=== PATIENT | male | born 1990 | race Caucasian/White ===

== ENCOUNTER 2016-10-19 22:52 | Emergency (ER) | payer OTHER, MEDICARE ==
[~2016-10-19] VITALS: Ht 185.4 cm; Wt 118.3 kg
[~2016-10-19 22:52] MED LIST: FLAGYL500 MG PO; LEVAQUIN750 MG PO; OMEPRAZOLE40 M1 PO
[2016-10-19 23:58] LABS: HEMATOCRIT 39.5 % (38.0-50.0); MCH 28.7 PG (29.0-34.0); MCHC 34.7 G/DL (30.0-36.0); MCV 82.8 FL (86-99); MEAN PLAT.VOLUME 10.6 uM^3 (9.0-12.4); PLATELET COUNT 211 K/uL (156-360); RBC DIS.WIDTH-CV 12.3 % (11.8-14.6); RBC DIS.WIDTH-SD 37.5 % (39-53); RED BLOOD COUNT 4.77 M/uL (4.00-5.50); WHITE BLOOD COUNT 12.3 K/uL (4.1-10.2)
[2016-10-20 00:08] LABS: CHLORIDE 104 mEq/L (99-109); POTASSIUM 3.8 mEq/L (3.7-5.4); SODIUM 138 mEq/L (136-147)
[2016-10-20 00:10] LABS: GLUCOSE 92 mg/dL (70-99)
[2016-10-20 00:12] LABS: ANION GAP 10 MEQ/L (2-14); TOTAL BILIRUBIN 0.5 mg/dL (0.0-1.0)
[2016-10-20 00:14] LABS: ALKALINE PHOSPHATASE 47 IU/L (3-129); GFR ESTIMATE (CALCULATED) > 59 mL/min/
[2016-10-20 00:15] LABS: UREA NITROGEN (BUN) 15 mg/dL (9-23)
[2016-10-20 01:03] LABS: ADD MIUA? NO; BILIRUBIN NEGATIVE; BLOOD NEGATIVE; COLOR YELLOW ((YELLOW)); GLUCOSE (STRIP) NEGATIVE; KETONES NEGATIVE; LEUKOCYTES NEGATIVE; NITRITE NEGATIVE; PROTEIN (STRIP) NEGATIVE; SPECIFIC GRAVITY 1.013 (1.000-1.030); UCUL ADDED? NO; UROBILINOGEN 0.2 MG/DL (0.2-1.0)
[2016-10-20] MEDS ORDERED: PERCOCET 5/31 TABLET PO (01:25)
[2016-10-20] MEDS ORDERED: ZOFRAN ODT4 MG PO (01:25)
[2016-10-20 01:32] VITALS: BP 136/84
== END 2016-10-20 02:00 | disposition home or self-care (01) ==
LOC: EXP 22:52 → EME 22:52 → EXP 10-20 02:00
PROVIDERS: Physician Assistant
DX: R10.32 Left lower quadrant pain (principal); M54.9 Dorsalgia, unspecified; R11.0 Nausea; R19.7 Diarrhea, unspecified; R39.198 Other difficulties with micturition; K92.1 Melena; Z87.891 Personal history of nicotine dependence
CPT/HCPCS: 74176; 80053; 81003; 85027; 99281; 99285; J1885; J2270; J2405; J7030

== ENCOUNTER 2016-11-20 19:34 | Inpatient (IN) | payer OTHER, MEDICARE ==
[~2016-11-20] VITALS: Ht 182.9 cm; Wt 116.0 kg
[~2016-11-20 19:34] MED LIST changes: +PERCOCET 5/31 TABLET PO; +ZOFRAN ODT4 MG PO
[2016-11-20 20:23] LABS: MCH 28.4 PG (29.0-34.0); MCHC 33.4 G/DL (30.0-36.0); MCV 85.1 FL (86-99); MEAN PLAT.VOLUME 10.7 uM^3 (9.0-12.4); PLATELET COUNT 271 K/uL (156-360); RBC DIS.WIDTH-CV 12.8 % (11.8-14.6); RED BLOOD COUNT 5.17 M/uL (4.00-5.50); WHITE BLOOD COUNT 11.1 K/uL (4.1-10.2)
[2016-11-20 20:35] LABS: CHLORIDE 106 mEq/L (99-109); POTASSIUM 4.2 mEq/L (3.7-5.4); SODIUM 136 mEq/L (136-147)
[2016-11-20 20:37] LABS: GLUCOSE 103 mg/dL (70-99)
[2016-11-20 20:39] LABS: ANION GAP 7 MEQ/L (2-14); TOTAL BILIRUBIN 0.5 mg/dL (0.0-1.0)
[2016-11-20 20:41] LABS: ALKALINE PHOSPHATASE 49 IU/L (3-129); GFR ESTIMATE (CALCULATED) > 59 mL/min/
[2016-11-20 20:42] LABS: UREA NITROGEN (BUN) 17 mg/dL (9-23)
[2016-11-20 20:44] LABS: LIPASE 725 U/L (1.0-51.0)
[2016-11-20 22:42] LABS: AMYLASE 50 IU/L (1-118)
[2016-11-20 23:10] LABS: ADD MIUA? NO; BILIRUBIN NEGATIVE; BLOOD NEGATIVE; COLOR YELLOW ((YELLOW)); GLUCOSE (STRIP) NEGATIVE; KETONES NEGATIVE; LEUKOCYTES NEGATIVE; NITRITE NEGATIVE; PROTEIN (STRIP) NEGATIVE; SPECIFIC GRAVITY 1.016 (1.000-1.030); UCUL ADDED? NO; UROBILINOGEN 0.2 MG/DL (0.2-1.0)
[2016-11-21] MEDS ORDERED: PERCOCET 5/31 TABLET PO (01:10)
[2016-11-21] MEDS ORDERED: ZOFRAN4 MG PO (01:11)
[2016-11-21] MEDS ORDERED: ZOFRAN ODT4 MG PO (01:55)
[2016-11-21] MEDS ORDERED: SERTRALINE HCL50 MG PO (01:55)
[2016-11-21] MEDS ORDERED: LIBRAX, CLI1 CAPSULE PO (01:55)
[2016-11-21 04:57] VITALS: BP 153/96
[2016-11-21 05:53] LABS: BASOPHIL COUNT 0.1 K/uL (0-0.1); EOSINOPHIL (%) 7.6 % (0-5); EOSINOPHIL COUNT 0.9 K/uL (0-0.3); HEMATOCRIT 42.5 % (38.0-50.0); IMMATURE GRANULOCYTE (%) 0.5 % (0.0-0.7); IMMATURE GRANULOCYTE COUNT 0.1 K/uL; INSTRUMENT ABS NEUTROPHIL CT 7.8 K/uL; LYMPHOCYTE COUNT 2.6 K/uL (1.0-2.8); MCH 27.6 PG (29.0-34.0); MCHC 32.5 G/DL (30.0-36.0); MEAN PLAT.VOLUME 10.4 uM^3 (9.0-12.4); MONOCYTE (%) 5.3 % (3-12); MONOCYTE COUNT 0.7 K/uL (0-0.8); NEUTROPHIL (%) 64.4 % (45-76); NEUTROPHIL COUNT 7.8 K/uL (1.8-6.4); PLATELET COUNT 252 K/uL (156-360); RBC DIS.WIDTH-SD 39.9 % (39-53); WHITE BLOOD COUNT 12.2 K/uL (4.1-10.2)
[2016-11-21 06:14] LABS: C-REACTIVE PROTEIN 9.3 MG/L (0-10)
[2016-11-21 07:51] VITALS: BP 161/98
[2016-11-21 12:09] LABS: HEMATOCRIT 39.4 % (38.0-50.0); MCV 86.2 FL (86-99)
[2016-11-21 13:11] LABS: TROP-I INTERPRETATION NEGATIVE; TROPONIN-I < 0.01 ng/mL (0.0-0.30)
[2016-11-21 14:35] LABS: LIPASE < 3.0 U/L (1.0-51.0)
[2016-11-21 15:00] LABS: ALKALINE PHOSPHATASE 40 IU/L (3-129); DIRECT BILIRUBIN 0.1 mg/dL (0.0-0.3); TOTAL BILIRUBIN 0.8 MG/DL (0.0-1.0)
[2016-11-21 20:59] LABS: TROP-I INTERPRETATION NEGATIVE; TROPONIN-I < 0.01 ng/mL (0.0-0.30)
[2016-11-22 00:19] VITALS: BP 116/55
[2016-11-22 03:49] LABS: TROP-I INTERPRETATION NEGATIVE; TROPONIN-I < 0.01 ng/mL (0.0-0.30)
[2016-11-22 07:06] VITALS: BP 113/58
[2016-11-22 15:01] VITALS: BP 131/82
[2016-11-22 22:05] VITALS: BP 142/87
[2016-11-23 03:28] VITALS: BP 118/58
[2016-11-23 06:31] LABS: MCH 28.8 PG (29.0-34.0); MCHC 34.9 G/DL (30.0-36.0); MCV 82.7 FL (86-99); PLATELET COUNT 257 K/uL (156-360); RBC DIS.WIDTH-CV 12.5 % (11.8-14.6); RBC DIS.WIDTH-SD 37.8 % (39-53); RED BLOOD COUNT 4.96 M/uL (4.00-5.50); WHITE BLOOD COUNT 10.3 K/uL (4.1-10.2)
[2016-11-23 07:07] VITALS: BP 135/97
[2016-11-23] MEDS ORDERED: HYDROCODON-ACE1 EAC9 PO (10:29)
[2016-11-23 11:04] VITALS: BP 131/78
== END 2016-11-23 11:47 | disposition home or self-care (01) | DRG 419 ==
LOC: EME 19:34 → EDOF 11-21 03:03 → ENRESERV 11-21 03:04 → 5SOUTH 11-21 04:07
PROVIDERS: Hospitalist; Physician Assistant Medical; Surgery
PROC: BF101ZZ Fluoroscopy of Bile Ducts using Low Osmolar Contrast (ICD-10-PCS; principal; 2016-11-22)
PROC: 0FT44ZZ Resection of Gallbladder, Percutaneous Endoscopic Approach (ICD-10-PCS; principal; 2016-11-22)
DX: K85.00 Idiopathic acute pancreatitis without necrosis or infection (principal); K81.1 Chronic cholecystitis; K52.9 Noninfective gastroenteritis and colitis, unspecified; R03.0 Elevated blood-pressure reading, without diagnosis of hypertension; K20.9 Esophagitis, unspecified; F32.9 Major depressive disorder, single episode, unspecified; E66.9 Obesity, unspecified; Z68.34 Body mass index [BMI] 34.0-34.9, adult; Z84.89 Family history of other specified conditions
CPT/HCPCS: 71010; 74177; 74183; 74300; 76705; 80053; 80076; 81003; 82150; 83690; 84484; 85014; 85018; 85025; 85027; 86140; 88304; 93005; 99281; 99285; C1769; C9113; J0131; J0330; J1100; J1170; J1650; J1885; J2270; J2405; J2710; J3010; J7030; J7120; S0020

== ENCOUNTER 2017-02-06 08:48 | Emergency (ER) | payer OTHER, MEDICARE ==
[~2017-02-06] VITALS: Ht 182.9 cm; Wt 117.7 kg
[~2017-02-06 08:48] MED LIST changes: +HYDROCODON-ACE1 EAC9 PO; +LIBRAX, CLI1 CAPSULE PO; +SERTRALINE HCL50 MG PO; +ZOFRAN4 MG PO
[2017-02-06 09:25] LABS: HEMATOCRIT 41.9 % (38.0-50.0); HEMOGLOBIN 14.3 G/DL (12.5-16.6); MCH 27.9 PG (29.0-34.0); MCHC 34.1 G/DL (30.0-36.0); MCV 81.8 FL (86-99); PLATELET COUNT 266 K/uL (156-360); RBC DIS.WIDTH-CV 12.6 % (11.8-14.6); RBC DIS.WIDTH-SD 37.7 % (39-53); RED BLOOD COUNT 5.12 M/uL (4.00-5.50); WHITE BLOOD COUNT 9.9 K/uL (4.1-10.2)
[2017-02-06 09:35] LABS: ALBUMIN 4.7 g/dL (3.2-4.8); CHLORIDE 102 mEq/L (99-109); POTASSIUM 4.6 mEq/L (3.7-5.4); SODIUM 135 mEq/L (136-147)
[2017-02-06 09:38] LABS: GLUCOSE 118 mg/dL (70-99); TOTAL PROTEIN 8.3 g/dL (6.4-8.3)
[2017-02-06 09:40] LABS: TOTAL BILIRUBIN 0.7 mg/dL (0.0-1.0)
[2017-02-06 09:41] LABS: ALKALINE PHOSPHATASE 53 IU/L (3-129); GFR ESTIMATE (CALCULATED) > 59 mL/min/ (58.99-99999)
[2017-02-06 09:42] LABS: UREA NITROGEN (BUN) 13 mg/dL (9-23)
[2017-02-06 09:43] LABS: AST (GOT) 26 IU/L (2-34)
[2017-02-06 09:44] LABS: ALT (GPT) 50 IU/L (3-49)
[2017-02-06 09:45] LABS: LIPASE 9 U/L (1.0-51.0)
[2017-02-06 10:59] LABS: APPEARANCE CLEAR ((CLEAR)); BILIRUBIN NEGATIVE; BLOOD MODERATE; COLOR YELLOW ((YELLOW)); GLUCOSE (STRIP) NEGATIVE; KETONES NEGATIVE; LEUKOCYTES NEGATIVE; NITRITE NEGATIVE; PROTEIN (STRIP) NEGATIVE; SPECIFIC GRAVITY 1.009 (1.000-1.030); UROBILINOGEN 0.2 MG/DL (0.2-1.0)
[2017-02-06 11:03] LABS: BACTERIA RARE /HPF; EPITHELIAL CELLS RARE /HPF; MUCUS TRACE /LPF; RED BLOOD CELLS 0-5 /HPF (0-5); UCUL ADDED? NO; WHITE BLOOD CELLS 0-5 /HPF (0-5)
[2017-02-06] MEDS ORDERED: VICODIN 5-3001 EACH PO (14:03)
[2017-02-06 14:08] VITALS: BP 139/75
== END 2017-02-06 14:20 | disposition home or self-care (01) ==
LOC: EME 08:48
DX: R10.11 Right upper quadrant pain (principal); R31.9 Hematuria, unspecified; Z83.79 Family history of other diseases of the digestive system; Z88.0 Allergy status to penicillin
CPT/HCPCS: 74176; 80053; 81003; 83690; 85027; 99281; 99284; J0780; J2270